=== PATIENT | male | born 1985 | race Caucasian/White ===

== ENCOUNTER 2025-07-19 11:34 | Emergency (ER) | payer OTHER ==
--- NOTE | 2025-07-19 11:44 | ERPHSYRPT ---
- History of Present Illness Time Seen by Provider: 07/19/25 11:44 Historian: patient, family Exam Limitations: no limitations Physician History: This is a 39-year-old overweight white male patient who has no history of coronary artery disease and arrives by private vehicle and is a patient of Dr. Lee with a complaint of substernal central chest pressure that radiates into his left arm and left jaw that began today. Patient states that while he was at the [facility] obtaining lab draws he began to have the symptoms that came on relatively suddenly and his systolic blood pressure was 160. Patient states in the last week he has had similar episodes where he felt his blood pressure was high because he was having headache and felt palpitations. Patient has a history of anxiety and is on Xanax. He has a history of gastroesophageal reflux disease. He is not a smoker. He has never had a myocardial infarction. He has no documented history of elevated cholesterol. He has no documented history of hypertension. He is not on any medication for this. He states he has a history of hemochromatosis and he has a phlebotomy session scheduled for next week. His symptoms have resolved. When I evaluated him his systolic blood pressure was 125 his heart rate was in the 70s, his oxygen saturation levels on room air was 99% and his respiratory rate was 17. Patient states that ever since he was having the symptoms in the last week, he has been taking a lot of aspirin. He took two enteric-coated aspirin each 325 mg Timing/Duration: week(s) (1), intermittent Quality: pressure Location: substernal, central Chest Pain Radiation: jaw (Left), arm (Left side) Severity of Pain-Max: mild Severity of Pain-Current: none (To moderate) Modifying Factors: Improves With: nothing Prior Chest Pain/Cardiac Workup: no prior chest pain Nitro Today/Relief: no nitro taken today Aspirin Treatment Today: provided at home (Two 325 mg enteric-coated aspirin) Allergies/Adverse Reactions: bupropion [From Wellbutrin] Allergy (Verified 07/19/25 11:37) Hives Home Medications: ALPRAZolam [Xanax Xr] 0.5 mg PO BID 07/19/25 [History] Omeprazole 20 mg PO DAILY PRN 07/19/25 [History] Travel Risk - International Travel Have you traveled outside of the country in past 3 weeks: No - Emerging Infectious Disease Are you exhibiting symptoms associated with any current EIDs: No - Review of Systems Constitutional: No Symptoms Eyes: No Symptoms Ears, Nose, & Throat: No Symptoms Respiratory: No Symptoms Cardiac: Chest Pain (Now resolved) Abdominal/Gastrointestinal: No Symptoms Genitourinary Symptoms: No Symptoms Musculoskeletal: No Symptoms Skin: No Symptoms Neurological: No Symptoms Psychological: No Symptoms Endocrine: No Symptoms Hematologic/Lymphatic: No Symptoms Immunological/Allergic: No Symptoms All Other Systems: Reviewed and Negative - Past Medical History Pertinent Past Medical History: Yes - Nursing Vital Signs Nursing Vital Signs: Initial Vital Signs Pulse Rate 92 H 07/19/25 11:36 Respiratory Rate 13 07/19/25 11:36 Blood Pressure 160/95 07/19/25 11:36 O2 Sat by Pulse Oximetry 99 07/19/25 11:36 Pain Scale Pain Intensity 0 - Physical Exam General Appearance: no apparent distress, alert, anxiety, obese Eye Exam: PERRL/EOMI, eyes nml inspection Ears, Nose, Throat Exam: normal ENT inspection, moist mucous membranes Neck Exam: normal inspection, non-tender, supple, full range of motion Respiratory Exam: normal breath sounds, lungs clear (Resolved), airway intact, No chest tenderness, No respiratory distress Cardiovascular Exam: regular rate/rhythm, normal heart sounds, normal peripheral pulses Gastrointestinal/Abdomen Exam: soft, normal bowel sounds, No tenderness Rectal Exam: not done Back Exam: normal inspection, normal range of motion, No CVA tenderness, No vertebral tenderness Extremity Exam: normal inspection, normal range of motion, pelvis stable Neurologic Exam: alert, oriented x 3, cooperative, work force advisor II-XII nml as tested, nml cerebellar function, nml station & gait, sensation nml Skin Exam: normal color, warm, dry Lymphatic Exam: No adenopathy SpO2 Interpretation: normal O2 Delivery: Room Air - Course Nursing assessment & vital signs reviewed: Yes EKG Interpreted by Me: RATE (92), Sinus Rhythm, NORMAL AXIS, NORMAL INTERVALS, NORMAL QRS, Other (QTc is 415. No acute ischemia) Ordered Tests: Active Orders 24 hr Category Date Time Status Supervisor Seaming STAT Care 07/19/25 12:06 Active EKG-ER Only STAT Care 07/19/25 12:06 Active IV Insertion STAT Care 07/19/25 12:06 Active CHEST 1 VIEW (PORTABLE) Stat Exams 07/19/25 13:27 Taken CBC W DIFF Stat Lab 07/19/25 12:00 Completed CMP Stat Lab 07/19/25 12:00 Completed D-DIMER QUANTITATIVE Stat Lab 07/19/25 12:00 Completed MAGNESIUM Stat Lab 07/19/25 12:00 Completed PROTIME WITH INR Stat Lab 07/19/25 12:00 Completed TROPONIN Q4H Lab 07/19/25 12:00 Completed TROPONIN Q4H Lab 07/19/25 16:15 Ordered TROPONIN Q4H Lab 07/19/25 20:15 Ordered Medication Summary Discontinued Medications Generic Name Dose Route Start Last Admin Trade Name Chanel PRN Reason Stop Dose Admin Aspirin 324 mg 07/19/25 12:06 07/19/25 12:15 Aspirin 81 Mg Tab.Chew PO 07/19/25 12:07 Not Given STAT ONE Aspirin Confirm 07/19/25 12:11 Aspirin 81 Mg Tab.Chew Administered 07/19/25 12:12 Dose 243 mg .ROUTE .iPosi ONE Lab/Rad Data: Laboratory Result Diagrams 07/19/25 12:00 07/19/25 12:00 Laboratory Results 07/19/25 07/19/25 07/19/25 Range/Units 12:00 12:00 12:00 WBC (4.23-9.07) x10^3/uL RBC (4.63-6.08) x10^6/uL Hgb (13.7-17.5) g/dL Hct (40.1-51.0) % MCV (79.0-92.2) fL MCH (25.7-32.2) pg MCHC (32.3-36.5) g/dL RDW (11.6-14.4) % Plt Count (163-337) x10^3/uL MPV (9.4-12.4) fL Gran % (34.0-67.9) % Immature Gran % (Auto) (0.001-0.429) % Nucleat RBC Rel Count (0.00-0.2) % Eos # (Auto) (0.04-0.54) x10^3/uL Immature Gran # (Auto) (0.001-0.031) x10^3u/L Absolute Lymphs (auto) (1.32-3.57) x10^3/uL Absolute Monos (auto) (0.30-0.82) x10^3/uL Absolute Nucleated RBC (0.00-0.012) x10^3u/L Lymphocytes % (21.8-53.1) % Monocytes % (5.3-12.2) % Eosinophils % (0.8-7.0) % Basophils % (0.2-1.2) % Absolute Granulocytes (1.78-5.38) x10^3/uL Basophils # (0.01-0.08) x10^3/uL PT 11.3 (9.4-12.5) SECONDS INR 1.01 (0.8-3.0) D-Dimer 0.20 (0.0-0.50) mg/L Sodium 139 (135-145) mmol/L Potassium 4.2 (3.5-5.1) mmol/L Chloride 104 (98-107) mmol/L Carbon Dioxide 26 (22-30) mmol/L Anion Gap 13.2 (5-15) MEQ/L BUN 11 (9-20) mg/dL Creatinine 0.97 (0.66-1.25) mg/dL Estimated GFR 103.1 ML/MIN Glucose 102 (74-106) mg/dL Calcium 9.6 (8.4-10.2) mg/dL Magnesium 2.0 (1.6-2.3) mg/dL Total Bilirubin 0.70 (0.2-1.3) mg/dL AST 47 (17-59) U/L ALT 73 H (0-50) U/L Alkaline Phosphatase 74 (38-126) U/L Troponin I < 0.012 (0.000-0.033) ng/mL Serum Total Protein 7.8 (6.3-8.2) g/dL Albumin 4.8 (3.5-5.0) g/dL 07/19/25 Range/Units 12:00 WBC 5.2 (4.23-9.07) x10^3/uL RBC 5.05 (4.63-6.08) x10^6/uL Hgb 16.1 (13.7-17.5) g/dL Hct 44.9 (40.1-51.0) % MCV 88.9 (79.0-92.2) fL MCH 31.9 (25.7-32.2) pg MCHC 35.9 (32.3-36.5) g/dL RDW 12.0 (11.6-14.4) % Plt Count 198 (163-337) x10^3/uL MPV 10.7 (9.4-12.4) fL Gran % 46.4 (34.0-67.9) % Immature Gran % (Auto) 0.2 (0.001-0.429) % Nucleat RBC Rel Count 0.0 (0.00-0.2) % Eos # (Auto) 0.07 (0.04-0.54) x10^3/uL Immature Gran # (Auto) 0.01 (0.001-0.031) x10^3u/L Absolute Lymphs (auto) 2.15 (1.32-3.57) x10^3/uL Absolute Monos (auto) 0.51 (0.30-0.82) x10^3/uL Absolute Nucleated RBC 0.00 (0.00-0.012) x10^3u/L Lymphocytes % 41.7 (21.8-53.1) % Monocytes % 9.9 (5.3-12.2) % Eosinophils % 1.4 (0.8-7.0) % Basophils % 0.4 (0.2-1.2) % Absolute Granulocytes 2.39 (1.78-5.38) x10^3/uL Basophils # 0.02 (0.01-0.08) x10^3/uL PT (9.4-12.5) SECONDS INR (0.8-3.0) D-Dimer (0.0-0.50) mg/L Sodium (135-145) mmol/L Potassium (3.5-5.1) mmol/L Chloride (98-107) mmol/L Carbon Dioxide (22-30) mmol/L Anion Gap (5-15) MEQ/L BUN (9-20) mg/dL Creatinine (0.66-1.25) mg/dL Estimated GFR ML/MIN Glucose (74-106) mg/dL Calcium (8.4-10.2) mg/dL Magnesium (1.6-2.3) mg/dL Total Bilirubin (0.2-1.3) mg/dL AST (17-59) U/L ALT (0-50) U/L Alkaline Phosphatase (38-126) U/L Troponin I (0.000-0.033) ng/mL Serum Total Protein (6.3-8.2) g/dL Albumin (3.5-5.0) g/dL - Progress Progress: improved, re-examined Air Movement: good Progress Note: 07/19/25 12:45 My medical decision making and the assignment of moderate complexity of this patient's medical issue today is based on review of the patient's past medical history, reviewed patient's medication list, reviewed patient drug allergy list, history of present illness and physical findings on examination. The workup in this patient includes placement of an intravenous line, CBC, CMP, magnesium level, troponin level, D-dimer level, twelve-lead EKG. If the D-dimer level is elevated we will perform a CT scan of the chest with contrast. If the D-dimer level is normal or low we will order a chest x-ray. Differential diagnosis includes but not limited to anxiety about health, electrolyte abnormalities, pulmonary embolus, pulmonary infiltrate, myocardial infarction, arrhythmia 07/19/25 13:28 I interpreted the patient's laboratory data results. Based on laboratory data results, there are no acute, emergent medical issues. We are awaiting the chest x-ray to be performed. If the chest x-ray shows no significant acute or emergent findings, we will discharge the patient to home. Patient's heart score is low, less than 4. 07/19/25 13:40 I interpreted the preliminary chest x-ray report. There are no acute cardiopulmonary processes. Blood Culture(s) Obtained: No Antibiotics given: No Counseled pt/family regarding: lab results, diagnosis, need for follow-up, rad results Medical Desision Making - Diagnostic Testing Diagnostic test were ordered, analyzed, and reviewed by me: Yes Radiological Interpretation: Interpreted by me - Risk of complications Low Risk: Low risk of morbidity from additional dx testing or treatment - Departure Departure Disposition: Home Clinical Impression: Nonspecific chest pain Condition: Stable Critical Care Time: No Referrals: OPAL LEE III, DO [Primary Care Provider, [facility]] - Follow up/PCP as directed Additional Instructions: Take 1 baby aspirin only each day. Call your primary care provider today, 07/19/2025, to make arrangements for follow-up appointment for further evaluation and management including stress test, echocardiogram, referral to optical glass etcher if indicated. Take all your medications as prescribed
[2025-07-19 11:49] VITALS: TEMP 98.1
[2025-07-19] MEDS ORDERED: BABY ASPIRIN 81 MG CHEW ONE (12:11)
[2025-07-19] MEDS: BABY ASPIRIN 81 MG CHEW PO ONE (12:12)
[2025-07-19 12:14] LABS: BASOPHIL % 0.4 % (0.2-1.2); Basophil (Absolute #) 0.02 x10^3/uL (0.01-0.08); Eosinophil (Absolute #) 0.07 x10^3/uL (0.04-0.54); Hematocrit 44.9 % (40.1-51.0); Hemoglobin 16.1 g/dL (13.7-17.5); IMMATURE GRAN # 0.01 x10^3u/L (0.001-0.031); IMMATURE GRAN % 0.2 % (0.001-0.429); Lymphocyte (Absolute #) 2.15 x10^3/uL (1.32-3.57); Mean Corpuscular Hemoglobin 31.9 pg (25.7-32.2); Mean Corpuscular Hgb Concent. 35.9 g/dL (32.3-36.5); Monocyte (Absolute #) 0.51 x10^3/uL (0.30-0.82); NUCLEATED RBC # 0.00 x10^3u/L (0.00-0.012); NUCLEATED RBC % 0.0 % (0.00-0.2); Platelet Count 198 x10^3/uL (163-337); Red Blood Count 5.05 x10^6/uL (4.63-6.08); White Blood Count 5.2 x10^3/uL (4.23-9.07)
[2025-07-19 12:25] LABS: Calcium 9.6 mg/dL (8.4-10.2); Carbon Dioxide 26.0 mmol/L (22-30); Creatinine 1 0.97 mg/dL (0.66-1.25); EST GLOMERULAR FILTRATION RATE 103.1 ML/MIN; Glucose 102.0 mg/dL (74-106); Potassium 4.2 mmol/L (3.5-5.1); SGOT/AST 47.0 U/L (17-59); SGPT/ALT 73.0 U/L (0-50); Total Protein 7.8 g/dL (6.3-8.2)
[2025-07-19 12:27] LABS: INR 1.01 (0.8-3.0); PROTIME 11.3 SECONDS (9.4-12.5)
[2025-07-19 13:54] VITALS: BP 128/84; PULSE 67; RESP 15; O2SAT 96
--- NOTE | 2025-07-19 13:58 | XRAY ---
Indication: Chest pain. Comparison: May 18, 2025 Portable chest again demonstrates normal heart and lungs with incidental right base calcified granuloma. Bony thorax intact. No new/acute findings.
== END 2025-07-19 14:00 | disposition home or self-care (01) ==
LOC: ED 11:34
DX: R07.9 Chest pain, unspecified (principal); Z79.899 Other long term (current) drug therapy